=== PATIENT | female | born 1945 | race Caucasian/White ===

== ENCOUNTER 2018-05-17 14:01 | Inpatient (IN) | payer MEDICARE, MEDICAID ==
[~2018-05-17] VITALS: Ht 160 cm; Wt 51.7 kg
[2018-05-17] MEDS ORDERED: SODIUM CHLORIDE 0.9% 1,000 ML IV ONE (15:16)
[2018-05-17] MEDS ORDERED: LORAZEPAM 2MG/ML CPJ IM ONE (15:30)
[2018-05-17] MEDS ORDERED: PIPERACILLIN/TAZ 3.375G PREMIX 50 ML IV ONE (17:30)
[2018-05-17 17:48] LABS: BASOPHILS % 0.8 % (0.0-2.0); EOSINOPHILS % 4.3 % (0.0-5.0); HEMATOCRIT. 34.5 % (36.0-48.0); HEMOGLOBIN. 11.3 g/dL (12.0-16.0); LYMPHOCYTES % 18.3 % (20.0-50.0); MEAN CORPUSCULAR HEMOGLOBIN 30.7 pg (28.0-32.0); MEAN CORPUSCULAR VOLUME 93.4 fL (81.0-99.0); MEAN PLATELET VOLUME 8.6 fl (7.4-10.4); MONOCYTES % 10.7 % (2.0-8.0); NEUTROPHILS % 65.9 % (40.0-76.0); PLATELET 281 x1000/uL (130-400); RED BLOOD CELL COUNT 3.69 mill/uL (4.2-5.4); RED CELL DISTRIBUTION WIDTH 12.3 % (11.6-14.6)
[2018-05-17 17:52] LABS: CHLORIDE 106 mEq/L (98-107)
[2018-05-17 17:53] LABS: PARTIAL THROMBOPLASTIN TIME 25.3 sec (23.4-31.0); PROTHROMBIN TIME 9.7 sec (9.1-11.1)
[2018-05-17] MEDS ORDERED: ACETAMINOPHEN 650MG SUPP PR PRN (18:15)
[2018-05-17] MEDS ORDERED: HYDRALAZINE 20MG/ML VIAL IV PRN (18:15)
[2018-05-17] MEDS ORDERED: ONDANSETRON HCL 4MG/2ML INJ IV PRN (18:15)
[2018-05-17] MEDS ORDERED: IPRATROPIUM/ALBUTEROL 0.5-3(2.5)MG/3ML NEB INH PRN (18:15)
[2018-05-17 20:04] LABS: CLARITY URINE CLEAR (CLEAR); COLOR URINE YELLOW (YELLOW); KETONES URINE NEGATIVE (NEGATIVE); LEUKOCYTE ESTERASE URINE NEGATIVE (NEGATIVE); NITRITE URINE NEGATIVE (NEGATIVE); OCCULT BLOOD URINE NEGATIVE (NEGATIVE); PH URINE 7.5 (4.5-8.0); PROTEIN URINE NEGATIVE (NEGATIVE); SPECIFIC GRAVITY URINE 1.008 (1.005-1.030); UROBILINOGEN URINE 0.2 E.U./dL (0.2-1.0)
[2018-05-17] MEDS: LORAZEPAM 2MG/ML CPJ IV PRN (22:24)
[2018-05-17 22:55] VITALS: BP 124/31
[2018-05-17] MEDS ORDERED: MULT-25 PO (23:24)
[2018-05-17] MEDS ORDERED: CLON0.5T23 PO (23:24)
[2018-05-17] MEDS ORDERED: CARB200T6 PO (23:24)
[2018-05-17] MEDS ORDERED: OLAN20TA16 PO (23:24)
[2018-05-17] MEDS ORDERED: ATOR20TA65 PO (23:24)
[2018-05-17] MEDS ORDERED: FLAX100032 MT (23:24)
[2018-05-17] MEDS ORDERED: POLY250017 MT (23:24)
[2018-05-17] MEDS ORDERED: CARB300C6 PO (23:24)
[2018-05-18] VITALS: BP 123/49
[2018-05-18] MEDS: DEXT 5%/0.45% NACL 1000ML 1,000 ML IV SCH (02:32)
[2018-05-18] MEDS: LORAZEPAM 2MG/ML CPJ IV PRN ×3 (02:56→21:34)
[2018-05-18 04:00] VITALS: BP 124/74
[2018-05-18 08:00] VITALS: BP 120/57
[2018-05-18] MEDS ORDERED: ENOXAPARIN 40MG/0.4ML SYR SUBCUT SCH (09:00)
[2018-05-18] MEDS: PANTOPRAZOLE SODIUM 40 MG/VIAL IV SCH (09:02)
[2018-05-18 12:00] VITALS: BP 128/35
[2018-05-18] MEDS ORDERED: SODIUM CHLORIDE 0.9% 10ML VIAL ONE (14:35)
[2018-05-18] MEDS ORDERED: MIDAZOLAM HCL 5 MG/5 ML VIAL IV PRN (15:46)
[2018-05-18] MEDS ORDERED: FENTANYL CITRATE/PF 50MCG/ML 2ML VIAL IV PRN (15:47)
[2018-05-18] MEDS ORDERED: MIDAZOLAM HCL 5 MG/5 ML VIAL ONE (15:52)
[2018-05-18] MEDS ORDERED: FENTANYL CITRATE/PF 50MCG/ML 2ML VIAL ONE (15:53)
[2018-05-18] MEDS: HALOPERIDOL LACTATE 5MG/ML VIAL IM PRN (18:54)
[2018-05-18 20:00] VITALS: BP 110/68
[2018-05-19] VITALS: BP 143/67
[2018-05-19] MEDS: DEXT 5%/0.45% NACL 1000ML 1,000 ML IV SCH ×2 (02:15→02:17)
[2018-05-19 04:00] VITALS: BP 143/77
[2018-05-19 08:00] VITALS: BP 122/70
[2018-05-19] MEDS: PANTOPRAZOLE SODIUM 40 MG/VIAL IV SCH (08:33)
[2018-05-19] MEDS: LORAZEPAM 2MG/ML CPJ IV PRN ×3 (08:33→22:00)
[2018-05-19] MEDS: LACTULOSE 20G/30ML UDC PO SCH ×2 (10:03→17:37)
[2018-05-19 12:00] VITALS: BP 131/56
[2018-05-19] MEDS: HALOPERIDOL LACTATE 5MG/ML VIAL IM PRN ×2 (13:38→20:50)
[2018-05-19] MEDS: DIPHENHYDRAMINE 50MG/ML VIAL IV PRN ×2 (14:45→23:55)
[2018-05-19 16:00] VITALS: BP 130/98
[2018-05-19 20:00] VITALS: BP 130/49
[2018-05-20] VITALS: BP 134/60
[2018-05-20] MEDS: LORAZEPAM 2MG/ML CPJ IV PRN ×2 (03:57→22:14)
[2018-05-20 04:00] VITALS: BP 107/58
[2018-05-20] MEDS: DIPHENHYDRAMINE 50MG/ML VIAL IV PRN (04:29)
[2018-05-20] MEDS: DEXT 5%/0.45% NACL 1000ML 1,000 ML IV SCH ×2 (06:26→17:25)
[2018-05-20 08:00] VITALS: BP 120/43
[2018-05-20] MEDS: LACTULOSE 20G/30ML UDC PO SCH ×2 (08:26→17:25)
[2018-05-20] MEDS: PANTOPRAZOLE SODIUM 40 MG/VIAL IV SCH (08:26)
[2018-05-20 12:00] VITALS: BP 129/45
[2018-05-20 16:00] VITALS: BP 123/40
[2018-05-20 20:00] VITALS: BP 142/62
[2018-05-21] VITALS (8 sets, daily range): BP systolic 97–133; BP diastolic 40–59
[2018-05-21] MEDS: DIPHENHYDRAMINE 50MG/ML VIAL IV PRN (05:14)
[2018-05-21] MEDS: DEXT 5%/0.45% NACL 1000ML 1,000 ML IV SCH (05:16)
[2018-05-21] MEDS: PANTOPRAZOLE SODIUM 40 MG/VIAL IV SCH (09:29)
[2018-05-21] MEDS: LACTULOSE 20G/30ML UDC PO SCH ×2 (09:29→17:00)
[2018-05-21] MEDS: MORPHINE SULFATE 4 MG/ML CPJ (NOT FOR IM USE) IV PRN (12:38)
[2018-05-22 04:00] VITALS: BP 118/55
[2018-05-22 07:25] VITALS: BP 151/46
[2018-05-22] MEDS: LACTULOSE 20G/30ML UDC PO SCH ×2 (09:25→17:00)
[2018-05-22] MEDS: PANTOPRAZOLE SODIUM 40 MG/VIAL IV SCH (09:25)
[2018-05-22] MEDS: DEXT 5%/0.45% NACL 1000ML 1,000 ML IV SCH ×2 (09:40→09:42)
[2018-05-22 12:00] VITALS: BP 140/51
[2018-05-22] MEDS: MORPHINE SULFATE 4 MG/ML CPJ (NOT FOR IM USE) IV PRN ×2 (12:18→16:44)
[2018-05-22] MEDS: HALOPERIDOL LACTATE 5MG/ML VIAL IM PRN (14:06)
[2018-05-22] MEDS: DIPHENHYDRAMINE 50MG/ML VIAL IV PRN ×2 (15:53→22:44)
[2018-05-22 16:00] VITALS: BP 131/56
[2018-05-22] MEDS ORDERED: SORBITOL 70% SOLN 30ML PO NR ×2 (16:00→20:00)
[2018-05-22 20:00] VITALS: BP 136/55
[2018-05-22] MEDS ORDERED: SORBITOL 70% SOLN 30ML PO SCH (21:30)
[2018-05-23] VITALS: BP 139/75
[2018-05-23 04:00] VITALS: BP 111/41
[2018-05-23] MEDS: DEXT 5%/0.45% NACL 1000ML 1,000 ML IV SCH (05:43)
[2018-05-23 07:01] LABS: INR 1.1; PARTIAL THROMBOPLASTIN TIME 21.3 sec (23.4-31.0); PROTHROMBIN TIME 10.7 sec (9.1-11.1)
[2018-05-23 07:03] LABS: BASOPHILS % 0.9 % (0.0-2.0); EOSINOPHILS % 1.8 % (0.0-5.0); HEMATOCRIT. 34.4 % (36.0-48.0); HEMOGLOBIN. 11.6 g/dL (12.0-16.0); LYMPHOCYTES % 13.7 % (20.0-50.0); MEAN CORPUSCULAR HEMOGLOBIN 31.2 pg (28.0-32.0); MEAN CORPUSCULAR VOLUME 92.7 fL (81.0-99.0); MEAN PLATELET VOLUME 9.3 fl (7.4-10.4); MONOCYTES % 11.8 % (2.0-8.0); NEUTROPHILS % 71.8 % (40.0-76.0); PLATELET 256 x1000/uL (130-400); RED BLOOD CELL COUNT 3.71 mill/uL (4.2-5.4); RED CELL DISTRIBUTION WIDTH 12.5 % (11.6-14.6)
[2018-05-23 07:19] LABS: CHLORIDE 113 mEq/L (98-107)
[2018-05-23 08:00] VITALS: BP 97/66
[2018-05-23] MEDS: LACTULOSE 20G/30ML UDC PO SCH ×2 (09:00→17:00)
[2018-05-23] MEDS: PANTOPRAZOLE SODIUM 40 MG/VIAL IV SCH (09:00)
[2018-05-23 12:00] VITALS: BP 102/48
[2018-05-23] MEDS ORDERED: SODIUM CHLORIDE 0.9% 10ML VIAL ONE (14:01)
[2018-05-23 16:00] VITALS: BP 135/58
[2018-05-23] MEDS ORDERED: MIDAZOLAM HCL 5 MG/5 ML VIAL IV PRN (17:49)
[2018-05-23] MEDS ORDERED: FENTANYL CITRATE/PF 50MCG/ML 2ML VIAL ONE (17:51)
[2018-05-23] MEDS ORDERED: MIDAZOLAM HCL 5 MG/5 ML VIAL ONE (17:51)
[2018-05-23 19:42] VITALS: BP 103/66
[2018-05-23] MEDS: HALOPERIDOL LACTATE 5MG/ML VIAL IM PRN (21:20)
[2018-05-23] MEDS: DIPHENHYDRAMINE 50MG/ML VIAL IV PRN (22:13)
[2018-05-24 00:02] VITALS: BP 118/68
[2018-05-24 04:00] VITALS: BP 141/54
[2018-05-24] MEDS: DEXT 5%/0.45% NACL 1000ML 1,000 ML IV SCH ×2 (05:21→17:30)
[2018-05-24] MEDS: DIPHENHYDRAMINE 50MG/ML VIAL IV PRN ×3 (05:54→21:52)
[2018-05-24] MEDS: HALOPERIDOL LACTATE 5MG/ML VIAL IM PRN ×3 (06:41→19:45)
[2018-05-24 08:00] VITALS: BP 144/44
[2018-05-24] MEDS: LACTULOSE 20G/30ML UDC PO SCH ×2 (08:30→17:30)
[2018-05-24] MEDS: PANTOPRAZOLE SODIUM 40 MG/VIAL IV SCH (08:48)
[2018-05-24 12:00] VITALS: BP 149/61
[2018-05-24 16:00] VITALS: BP 152/62
[2018-05-24 17:12] VITALS: BP 152/62
[2018-05-25] VITALS (7 sets, daily range): BP systolic 100–143; BP diastolic 49–60
[2018-05-25] MEDS: LACTULOSE 20G/30ML UDC PO SCH ×2 (09:00→17:00)
[2018-05-25] MEDS: PANTOPRAZOLE SODIUM 40 MG/VIAL IV SCH (09:42)
[2018-05-25] MEDS ORDERED: LIDOCAINE HCL/EPINEPHRINE 1%-EPI 1:100,000 20 ML VIAL INFIL SCH (15:00)
[2018-05-25] MEDS: HALOPERIDOL LACTATE 5MG/ML VIAL IM PRN (15:33)
== END 2018-05-25 21:18 | disposition home or self-care (01) | DRG 393 ==
LOC: ER 14:01 → 5WST 17:19 → EDBEDREQ 17:23 → EDBEDREQTM 17:23 → SUPCPDRO 17:44 → ENRESERV 20:01 → 5WST 23:15
PROVIDERS: ADMIT Internal Medicine; ATTEND Internal Medicine
PROC: 0DB78ZX Excision of Stomach, Pylorus, Via Natural or Artificial Opening Endoscopic, Diagnostic (ICD-10-PCS; 2018-05-18)
PROC: 0DCK8ZZ Extirpation of Matter from Ascending Colon, Via Natural or Artificial Opening Endoscopic (ICD-10-PCS; principal; 2018-05-23 16:30)
DX: T18.4XXA Foreign body in colon, initial encounter (principal); E43 Unspecified severe protein-calorie malnutrition; F20.9 Schizophrenia, unspecified; K29.70 Gastritis, unspecified, without bleeding; K44.9 Diaphragmatic hernia without obstruction or gangrene; D63.8 Anemia in other chronic diseases classified elsewhere; F41.9 Anxiety disorder, unspecified; F79 Unspecified intellectual disabilities; N63.0 Unspecified lump in unspecified breast; Z85.3 Personal history of malignant neoplasm of breast; Z68.20 Body mass index [BMI] 20.0-20.9, adult; Z88.8 Allergy status to other drugs, medicaments and biological substances; Z90.11 Acquired absence of right breast and nipple; X58.XXXA Exposure to other specified factors, initial encounter; Y93.89 Activity, other specified; Y92.89 Other specified places as the place of occurrence of the external cause; Y99.8 Other external cause status
CPT/HCPCS: 36415; 70360; 71045; 74018; 80053; 81003; 83036; 83690; 85025; 85610; 85730; 88300; 88305; 88312; 88313; 93005; 96365; 96366; 96372; 99152; 99291; A4216; A6261; C1893; C9113; J1200; J1630; J1650; J2060; J2250; J2270; J2543; J3010; J3490; J7030; J7620